=== PATIENT | male | born 1970 | race African-American/Black ===

== ENCOUNTER 2016-08-16 23:58 | Emergency (ER) | payer BC | END 2016-08-17 01:26 | disposition home or self-care (01) | LOC: D.ER 23:58 | DX: S41.111A Laceration without foreign body of right upper arm, initial encounter (principal); W18.2XXA Fall in (into) shower or empty bathtub, initial encounter; Y93.89 Activity, other specified; Y92.012 Bathroom of single-family (private) house as the place of occurrence of the external cause; I10 Essential (primary) hypertension ==